=== PATIENT | female | born 1980 | race Caucasian/White ===

== ENCOUNTER 2019-04-03 13:08 | Emergency (ER) | payer SELFPAY ==
[~2019-04-03] VITALS: Ht 152.4 cm; Wt 61.2 kg
--- NOTE | 2019-04-03 13:12 | NUR ---
Patient ambulated to bed 8. RN evaluating patient at bedside.
[2019-04-03 13:15] VITALS: BP 138/78
[2019-04-03] MEDS ORDERED: ACET1TAB93 PO (13:21)
[2019-04-03] MEDS ORDERED: METR250T2 PO (13:21)
[2019-04-03] MEDS ORDERED: AMOX500C25 PO (13:21)
[2019-04-03] MEDS ORDERED: IBUP-2213 PO (13:21)
--- NOTE | 2019-04-03 13:21 | NUR ---
PT C/O MOUTH PAIN X3 WEEKS, STATES SHE WAS SEEN BY HER DENTIST AND HAD A BRIDGE PLACEMENT, STATES PAIN DID NOT RESOLVED, BRIDGE REMOVED 2 WEEKS AGO AND PT WAS PLACED ON PAIN MEDS AND ANTIBIOTICS AND STATES PAIN HAS NOT IMPROVED HX DENIES Addendum: 04/03/19 at 1326 by [facility] PT C/O MOUTH PAIN X3 WEEKS, STATES SHE WAS SEEN BY HER DENTIST AND HAD A BRIDGE PLACEMENT, STATES PAIN DID NOT RESOLVED, BRIDGE REMOVED 2 WEEKS AGO AND PT WAS PLACED ON PAIN MEDS AND ANTIBIOTICS AND STATES PAIN HAS NOT IMPROVED. DENIES ANY FEVER, CHILLS, N, V AT THIS TIME. PAIN 5/1O . NO SWELLING OR REDNESS OBSERVED. PT ABLE TO MOVE HER JAW. INCREASES PAIN WHILE MOVEMENT OF THE JAW. Jose Manuel Anthony MD TO SEE THE PT. DENIES
--- NOTE | 2019-04-03 13:36 | NUR ---
Dr. Hernandez evaluating patient at bedside.
[2019-04-03 13:56] VITALS: BP 138/78
--- NOTE | 2019-04-03 13:56 | NUR ---
Patient discharged with v/s stable. Written and verbal after care instructions given and explained. Patient alert, oriented and verbalized understanding of instructions. Ambulatory with steady gait. All questions addressed prior to discharge. ID band removed. Patient advised to follow up with PMD. Rx of lidocaine hcl 2% viscious solution, norco given. Patient educated on indication of medication including possible reaction and side effects. Opportunity to ask questions provided and answered.
== END 2019-04-03 13:56 | disposition home or self-care (01) ==
LOC: MED 13:08
DX: K14.0 Glossitis (principal); Z79.899 Other long term (current) drug therapy
CPT/HCPCS: 99283